=== PATIENT | female | born 1955 | race Caucasian/White ===

== ENCOUNTER 2017-11-02 12:31 | Inpatient (IN) | payer OTHER ==
--- NOTE | 2017-11-02 13:05 | ED ---
Psychiatric Complaint - HPI Summary HPI Summary: This patient is a 62 year old F presenting to [facility] with a chief complaint of SI. Pt states she is having a difficult time and wants to hurt herself, denies plan. Pt states she has been crying a lot recently and is afraid of everything. She recently had a medication change and doesnt believe it is working. PMHx of depression and anxiety. - History Of Current Complaint Chief Complaint: EDMentalHealth Time Seen by Provider: 11/02/17 12:55 Hx Obtained From: Patient Onset/Duration: Still Present Timing: Constant Severity Initially: Mild Severity Currently: Mild Character: Depressed Related History: Positive For: Prior Psychiatric Issues Has Suicidal: Reports: Thoughts. Denies: With A Plan Has Homicidal: Denies: Thoughts, With A Plan - Allergies/Home Medications Allergies/Adverse Reactions: Allergies Allergy/AdvReac Type Severity Reaction Status Date / Time citalopram [From Celexa] Allergy Unknown Verified 11/02/17 13:52 Reaction Details codeine Allergy Unknown Verified 11/02/17 13:52 Reaction Details lithium Allergy Unknown Verified 11/02/17 13:52 Reaction Details Sulfa (Sulfonamide Allergy Unknown Verified 11/02/17 13:52 Antibiotics) Reaction Details Home Medications: Home Medications ARIPiprazole TAB* [Abilify TAB*] 5 mg PO DAILY 11/02/17 [History Confirmed ] Albuterol HFA INHALER* [Ventolin HFA Inhaler*] 2 puff INH Q4H PRN 11/02/17 [ History Confirmed 11/02/17] Diclofenac Sodium EC TAB* [Voltaren EC TAB*] 50 mg PO TID PRN 11/02/17 [History Confirmed 11/02/17] Levothyroxine TAB* [Synthroid TAB*] 150 mcg PO DAILY 11/02/17 [History Confirmed 11/02/17] Metoprolol Succinate XL TAB* [Toprol XL TAB*] 50 mg PO BID 11/02/17 [History Confirmed 11/02/17] Potassium Chlor TAB* [Klor Con ER TAB*] 20 meq PO BID 11/02/17 [History Confirmed 11/02/17] Simvastatin (NF) [Zocor (NF)] 40 mg PO QPM 11/02/17 [History Confirmed 11/02/17] Venlafaxine EXT RELEASE CAP* [Effexor Xr CAP*] 150 mg PO DAILY 11/02/17 [ History Confirmed 11/02/17] buPROPion SR TAB* [Wellbutrin SR TAB*] 200 mg PO BID 11/02/17 [History Confirmed 11/02/17] clonazePAM TAB(*) [KlonoPIN TAB(*)] 1 mg PO BID PRN MDD 2 mg 11/02/17 [History Confirmed 11/02/17] PMH/Surg Hx/FS Hx/Imm Hx Endocrine/Hematology History: Denies: Hx Diabetes Cardiovascular History: Reports: Hx Hypercholesterolemia, Hx Hypertension Denies: Hx Cardiomegaly, Hx Hypotension Respiratory History: Reports: Hx Asthma Denies: Hx Chronic Bronchitis, Hx Chronic Obstructive Pulmonary Disease (COPD ), Hx Cystic Fibrosis GI History: Denies: Hx Gastrointestinal Bleed Neurological History: Denies: Hx Developmental Delay, Hx Headaches, Hx Migraine Psychiatric History: Reports: Hx Anxiety, Hx Depression Infectious Disease History: No Infectious Disease History: Denies: Traveled Outside the [place] in Last 30 Days - Social History Alcohol Use: Rare Substance Use Type: Reports: Marijuana Hx Tobacco Use: Yes Smoking Status (MU): Former Smoker Review of Systems Negative: Fever Positive: Other - SI All Other Systems Reviewed And Are Negative: Yes Physical Exam - Summary Physical Exam Summary: VITAL SIGNS: Reviewed. GENERAL: Patient is a well-developed and nourished female who is lying comfortable in the stretcher. Patient is not in any acute respiratory distress. HEAD AND FACE: No signs of trauma. No ecchymosis, hematomas or skull depressions. No sinus tenderness. EYES: PERRLA, EOMI x 2, No injected conjunctiva, no nystagmus. EARS: Hearing grossly intact. Ear canals and tympanic membranes are within normal limits. MOUTH: Oropharynx within normal limits. NECK: Supple, trachea is midline, no adenopathy, no JVD, no carotid bruit, no c- spine tenderness, neck with full ROM. CHEST: Symmetric, no tenderness at palpation LUNGS: Clear to auscultation bilaterally. No wheezing or crackles. CVS: Regular rate and rhythm, S1 and S2 present, no murmurs or gallops appreciated. ABDOMEN: Soft, non-tender. No signs of distention. No rebound no guarding, and no masses palpated. Bowel sounds are normal. EXTREMITIES: FROM in all major joints, no edema, no cyanosis or clubbing. NEURO: Alert and oriented x 3. No acute neurological deficits. Speech is normal and follows commands. SKIN: Dry and warm PSYCH: Depressed, quiet, and expressed SI. No homicidal thoughts or plan. No signs of psychosis or pressure speech. No tangential speech. Triage Information Reviewed: Yes Vital Signs On Initial Exam: Initial Vitals Temp Pulse Resp BP Pulse Ox 95.2 F 75 18 138/103 94 11/02/17 12:48 11/02/17 12:48 11/02/17 12:48 11/02/17 12:48 11/02/17 12:48 Vital Signs Reviewed: Yes Diagnostics - Vital Signs Vital Signs Temp Pulse Resp BP Pulse Ox 11/02/17 12:48 95.2 F 75 18 138/103 94 - Laboratory Result Diagrams: 11/02/17 13:39 11/02/17 13:39 Lab Statement: Any lab studies that have been ordered have been reviewed, and results considered in the medical decision making process. Course/Dx - Course Assessment/Plan: This patient is a 62 year old F presenting to [facility] with a chief complaint of SI. Pt states she is having a difficult time and wants to hurt herself, denies plan. Pt states she has been crying a lot recently and is afraid of everything. She recently had a medication change and doesnt believe it is working. PMHx of depression and anxiety. After a MHE by Dr. Schulz the patient was not deemed stable to be discharged home at this time. She will be admitted to the unit voluntarily, for unspecified depression. - Differential Dx/Clinical Impression Provider Diagnosis: Major depressive disorder, recurrent episode, unspecified Discharge - Sign-Out/Discharge Documenting (check all that apply): Patient Departure All imaging exams completed and their final reports reviewed: No Studies - Discharge Plan Condition: Stable Disposition: HOME - Billing Disposition and Condition Condition: STABLE Disposition: Home - Attestation Statements Document Initiated by Scribe: Yes Documenting Scribe: Jose Monge Provider For Whom Scribe is Documenting (Include Credential): Bethel Salvador MD Scribe Attestation: Jose Leon , scribed for Bethel Salvador MD on 11/03/17 at 2108. Scribe Documentation Reviewed: Yes Provider Attestation: The documentation as recorded by the Jose gresham accurately reflects the service I personally performed and the decisions made by me, Bethel Salvador MD
[2017-11-02 13:42] LABS: Urine Appearance Cloudy; Urine Blood Negative (Negative); Urine Color Yellow; Urine Ketones Negative (Negative); Urine Protein Negative (Negative); Urine Specific Gravity 1.009 (1.010-1.030); Urine Urobilinogen Negative (Negative)
[2017-11-02 13:50] LABS: ABS Basophils 0.1 10^3/ul (0-0.2); ABS Eosinophils 0.1 10^3/ul (0-0.6); ABS Lymphocytes 3.5 10^3/ul (1.0-4.8); ABS Monocytes 0.8 10^3/ul (0-0.8); ABS Neutrophils 6.8 10^3/ul (1.5-7.7); ABS Nucleated RBC 0 10^3/ul; Eosinophil % 1.1 % (0-6); Hematocrit 45 % (35-47); Hemoglobin 14.9 g/dl (12.0-16.0); Lymphocyte % 31.2 % (25-47); Mean Corpuscular HGB Conc 33 g/dl (31-36); Mean Corpuscular Hemoglobin 29 pg (27-31); Mean Corpuscular Volume 86 fL (80-97); Mean Platelet Volume 9.4 um3 (7.4-10.4); Nucleated Red Blood Cells % 0.1; Platelet Count 268 10^3/ul (150-450); Red Blood Count 5.18 10^6/ul (4.00-5.40); Red Cell Distribution Width 15 % (10.5-15); White Blood Count 11.4 10^3/ul (3.5-10.8)
[2017-11-02 15:05] LABS: EGFR Non-African American 81.8 (>60)
[2017-11-02] MEDS ORDERED: Acetaminophen TAB* 325 MG PO PRN (15:21)
[2017-11-02] MEDS ORDERED: Al Hydrox/Mg Hydrox/Simet LIQ* 30 ML UDC PO PRN (15:21)
[2017-11-02] MEDS ORDERED: Diclofenac Sodium EC TAB* 25 MG PO PRN (15:23)
[2017-11-02] MEDS ORDERED: Albuterol HFA INHALER* 8 gm MDI INH PRN (15:23)
[2017-11-02] MEDS ORDERED: hydrOXYzine HCL TAB* 25 MG PO ONE (16:13)
[2017-11-02] MEDS ORDERED: buPROPion SR TAB.SR* 100 MG PO SCH (21:00)
[2017-11-02] MEDS: Atorvastatin* 20 MG TAB PO SCH (21:53)
[2017-11-02] MEDS: Potassium Chlor TAB* 20 MEQ TAB.ER PO SCH (21:53)
[2017-11-02] MEDS: Metoprolol Succinate XL TAB* 50 MG PO SCH (21:53)
[2017-11-03] MEDS: Potassium Chlor TAB* 20 MEQ TAB.ER PO SCH ×2 (08:06→21:18)
[2017-11-03] MEDS: Levothyroxine TAB* 150 MCG TAB PO SCH (08:06)
[2017-11-03] MEDS: Venlafaxine EXT RELEASE CAP* 75 MG PO SCH (08:07)
[2017-11-03] MEDS: Metoprolol Succinate XL TAB* 50 MG PO SCH ×2 (08:08→21:17)
[2017-11-03] MEDS: clonazePAM TAB(*) 1 MG PO PRN ×2 (08:11→21:20)
[2017-11-03] MEDS ORDERED: BUPROPION 200 MG PO SCH (09:00)
[2017-11-03] MEDS ORDERED: ARIPiprazole TAB* 5 MG PO SCH (09:00)
[2017-11-03] MEDS: Atorvastatin* 20 MG TAB PO SCH (17:35)
[2017-11-03] MEDS ORDERED: Ondansetron ODT TAB* 4 MG ONE (18:00)
[2017-11-03] MEDS ORDERED: Ondansetron ODT TAB* 4 MG PO PRN ×2 (18:46→19:00)
[2017-11-03] MEDS ORDERED: Lurasidone(*) 20 MG TAB PO STA (19:50)
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
[2017-11-04] MEDS: Levothyroxine TAB* 150 MCG TAB PO SCH (06:45)
[2017-11-04] MEDS: Venlafaxine EXT RELEASE CAP* 75 MG PO SCH (08:27)
[2017-11-04] MEDS: Potassium Chlor TAB* 20 MEQ TAB.ER PO SCH ×2 (08:27→22:17)
[2017-11-04] MEDS: clonazePAM TAB(*) 1 MG PO PRN (08:27)
[2017-11-04] MEDS: Metoprolol Succinate XL TAB* 50 MG PO SCH ×2 (08:27→22:17)
[2017-11-04] MEDS: Atorvastatin* 20 MG TAB PO SCH (17:29)
[2017-11-05] MEDS: Levothyroxine TAB* 150 MCG TAB PO SCH (05:59)
[2017-11-05] MEDS: Potassium Chlor TAB* 20 MEQ TAB.ER PO SCH ×2 (09:04→21:58)
[2017-11-05] MEDS: Venlafaxine EXT RELEASE CAP* 75 MG PO SCH (09:04)
[2017-11-05] MEDS: Metoprolol Succinate XL TAB* 50 MG PO SCH ×2 (09:05→21:58)
[2017-11-05] MEDS: clonazePAM TAB(*) 1 MG PO PRN (13:21)
--- NOTE | 2017-11-05 16:30 | PN ---
Subjective - Subjective Date of Service: 11/05/17 Service Type: 40055 Hosp care 25 min moderate complexity Subjective: Atiya and I meet for the first time. She reports that when things are bad, as they were when she was admitted, she feels like crying, is depressed, and feels like she is sinking. She states she has been feeling like this for 9 years, which is when she got sick with a parathyroid tumor, which was removed (which has returned). At the same time as the tumor, she left her and traveled between her daughter and her sister. She periodically stays with her , but he is drinking too much for her to tolerate. Atiya reports that she is very honest with her therapist (Maureen Samaniego) and that she has been lonely and anxious and withdrawn since she was a child. Atiya had bariatric surgery a year ago June, then a left knee replacement and then a right knee replacement. She feels as though she meets obstacles around every corner. She has chronic thoughts of suicide. Objective - Appearance Appearance: Healthy Appearing, Obese Dysmorphic Features: No Hygiene: Normal Grooming: Well Kept - Behavior Psychomotor Activities: Normal Exhibits Abnormal Movement: No - Attitude and Relatedness Attitude and Relatedness: Well Related Eye Contact: Good - Speech Quality: Unpressured Latencies: Normal Quantity: Appropriate - Mood Patient's Decription of Mood: "Sad" - Affect Observed Affect: Tearful - Thought Process Patient's Thought Process: Coherent Thought Content: Yes Passive Wish, Yes Suicidal Planning, No Homicidal Ideation, No Paranoid Ideation - Sensorium Experiencing Hallucinations: No, Sensorium is Clear Type of Hallucinations: Visual: No, Auditory: No, Command: No - Level of Consciousness Level of Consciousness: Alert Orientation: Yes Intact, Yes Orientated to Time, Yes Orientated to Place, Yes Orientated to Person - Impulse Control Impulse Control: Tenuous - Insight and Judgement Insight and Judgement: Fair - Group Participation Particating in Group Activities: Yes - Medication Management Medication Management Adherence: Yes - Additional Observations Comments: Atiya is very adherent to medication regimen and wants to attend groups. She is working hard at that, although she is also tired and naps. She is having passive suicidal thoughts for the most part, but admits to a plan to overdose if things got much worse. Her affect is full and she is very pleasant and also is quite sad and lonely. Assessment - Assessment Merits Inpatient Hospitalization: For Immediate Safety Clinical Impression: Atiya is a 63-y.o. white woman who is still to her , although they have been estranged for 9 years. She left and has maintained a similar level of distress for these 9 years with passive suicidal thoughts that occasionally lead to an active plan to overdose. In this context, Atiya is a danger to herself. She has traits of major depressive disorder and generalized anxiety disorder. Plan - Plan Treatment Plan: Name: ATIYA CONTRERAS Birthdate: 1955 [id number] Continued Medication Management: Different Medication Medications: Current Medications Acetaminophen (Tylenol Tab*) 650 mg PO Q4H PRN PRN Reason: for pain; or Temp >101 F Al Hydrox/Mg Hydrox/Simethicone (Maalox Plus*) 30 ml PO Q4H PRN PRN Reason: INDIGESTION Albuterol (Ventolin Hfa Inhaler*) 2 puff INH Q4H PRN PRN Reason: SHORTNESS OF BREATH Aripiprazole (Abilify Tab*) 5 mg PO DAILY [facility] Atorvastatin Calcium (Lipitor*) 20 mg PO QPM [facility] Last Admin: 11/04/17 17:29 Dose: 20 mg Clonazepam (Klonopin Tab(*)) 1 mg PO BID PRN PRN Reason: ANXIETY Last Admin: 11/05/17 13:21 Dose: 1 mg Diclofenac Sodium (Voltaren Ec Tab*) 50 mg PO TID PRN PRN Reason: PAIN Last Admin: 11/05/17 13:20 Dose: 50 mg Levothyroxine Sodium (Synthroid Tab*) 150 mcg PO DAILY@0600 [facility] Last Admin: 11/05/17 05:59 Dose: 150 mcg Metoprolol Succinate (Toprol Xl Tab*) 50 mg PO BID [facility] Last Admin: 11/05/17 09:05 Dose: 50 mg Ondansetron HCl (Zofran Odt Tab*) 4 mg PO Q6H PRN PRN Reason: NAUSEA Last Admin: 11/04/17 17:49 Dose: 4 mg Potassium Chloride (Klor Con Er Tab*) 20 meq PO BID [facility] Last Admin: 11/05/17 09:04 Dose: 20 meq Venlafaxine HCl (Effexor Xr Cap*) 225 mg PO DAILY [facility] - Discharge Plan Discharge Plan: Outpatient Follow Up Additional Comments: Atiya will go back to some of her original medications, which were helpful, although not fully covering her symptoms. She will continue with groups and collateral will be gathered from her daughter and sister, if possible. Further, attempts will be made to find all the services she is working with to provide her more support in the community.
[2017-11-05] MEDS: Atorvastatin* 20 MG TAB PO SCH (19:05)
[2017-11-06] MEDS: Levothyroxine TAB* 150 MCG TAB PO SCH (06:05)
[2017-11-06] MEDS: Venlafaxine EXT RELEASE CAP* 75 MG PO SCH (09:19)
[2017-11-06] MEDS: ARIPiprazole TAB* 5 MG PO SCH (09:19)
[2017-11-06] MEDS: Potassium Chlor TAB* 20 MEQ TAB.ER PO SCH ×2 (09:19→21:21)
[2017-11-06] MEDS: Metoprolol Succinate XL TAB* 50 MG PO SCH ×2 (09:20→21:21)
[2017-11-06] MEDS: clonazePAM TAB(*) 1 MG PO PRN (10:16)
--- NOTE | 2017-11-06 15:21 | PN ---
Subjective - Subjective Date of Service: 11/06/17 Service Type: 79324 Hosp care 25 min moderate complexity Subjective: Atiya feels much better today. She says she is learning things here that she hasn't learned in any of the other places she has visited. She's repeating that since a little girl she's felt less-than and anxious and that she realizes now that she needs to care for herself in this context and learn to be proactive and face her fears with bravery. Atiya says she's up to the challenge. Objective - Appearance Appearance: Obese Dysmorphic Features: No Hygiene: Normal Grooming: Fairly Well Kept - Behavior Psychomotor Activities: Normal Exhibits Abnormal Movement: No - Attitude and Relatedness Attitude and Relatedness: Needy Eye Contact: Good - Speech Quality: Unpressured Latencies: Normal Quantity: Appropriate - Mood Patient's Decription of Mood: "Good" - Affect Observed Affect: Good Affect Consistent with: Euthymia - Thought Process Patient's Thought Process: Coherent, Goal Directed Thought Content: No Passive Wish, No Suicidal Planning, No Homicidal Ideation, No Paranoid Ideation - Sensorium Experiencing Hallucinations: No, Sensorium is Clear Type of Hallucinations: Visual: No, Auditory: No, Command: No - Level of Consciousness Level of Consciousness: Alert Orientation: Yes Intact, Yes Orientated to Time, Yes Orientated to Place, Yes Orientated to Person - Impulse Control Impulse Control: Intact - Insight and Judgement Insight and Judgement: Good - Group Participation Particating in Group Activities: Yes - Medication Management Medication Management Adherence: Yes - Additional Observations Comments: Atiya is very adherent to medication regimen and wants to attend groups. She is working hard at that and states she is getting a lot out of them. Her affect is full and she is very pleasant. She admits she will struggle with sadness and loneliness when she goes home. Assessment - Assessment Merits Inpatient Hospitalization: For Immediate Safety, For Discharge Planning Inpatient DSM-V Dx: F33.1 Clinical Impression: Atiya is a 63-y.o. white woman who is still to her , although they have been estranged for 9 years. She left and has maintained a similar level of distress for these 9 years with passive suicidal thoughts that occasionally lead to an active plan to overdose. She has traits of major depressive disorder and generalized anxiety disorder. Plan - Plan Treatment Plan: Name: ATIYA CONTRERAS Birthdate: 1955 [id number] Continued Medication Management: Different Medication Medications: Current Medications Acetaminophen (Tylenol Tab*) 650 mg PO Q4H PRN PRN Reason: for pain; or Temp >101 F Al Hydrox/Mg Hydrox/Simethicone (Maalox Plus*) 30 ml PO Q4H PRN PRN Reason: INDIGESTION Albuterol (Ventolin Hfa Inhaler*) 2 puff INH Q4H PRN PRN Reason: SHORTNESS OF BREATH Aripiprazole (Abilify Tab*) 5 mg PO DAILY [facility] Last Admin: 11/06/17 09:19 Dose: 5 mg Atorvastatin Calcium (Lipitor*) 20 mg PO QPM [facility] Last Admin: 11/05/17 19:05 Dose: 20 mg Clonazepam (Klonopin Tab(*)) 1 mg PO BID PRN PRN Reason: ANXIETY Last Admin: 11/06/17 10:16 Dose: 1 mg Diclofenac Sodium (Voltaren Ec Tab*) 50 mg PO TID PRN PRN Reason: PAIN Last Admin: 11/05/17 13:20 Dose: 50 mg Levothyroxine Sodium (Synthroid Tab*) 150 mcg PO DAILY@0600 [facility] Last Admin: 11/06/17 06:05 Dose: 150 mcg Metoprolol Succinate (Toprol Xl Tab*) 50 mg PO BID [facility] Last Admin: 11/06/17 09:20 Dose: 50 mg Ondansetron HCl (Zofran Odt Tab*) 4 mg PO Q6H PRN PRN Reason: NAUSEA Last Admin: 11/04/17 17:49 Dose: 4 mg Potassium Chloride (Klor Con Er Tab*) 20 meq PO BID [facility] Last Admin: 11/06/17 09:19 Dose: 20 meq Venlafaxine HCl (Effexor Xr Cap*) 225 mg PO DAILY [facility] Last Admin: 11/06/17 09:19 Dose: 225 mg - Discharge Plan Discharge Plan: Outpatient Follow Up Additional Comments: Atiya will go back to some of her original medications, which were helpful, although not fully covering her symptoms. She will continue with groups and collateral will be gathered from her daughter and sister, if possible. Further, attempts will be made to find all the services she is working with to provide her more support in the community. She is agreeable to this plan and is delighted to go home.
[2017-11-06] MEDS: Atorvastatin* 20 MG TAB PO SCH (18:03)
[2017-11-07] MEDS: clonazePAM TAB(*) 1 MG PO PRN ×2 (00:49→09:22)
[2017-11-07] MEDS: Levothyroxine TAB* 150 MCG TAB PO SCH (06:27)
[2017-11-07 08:33] VITALS: BP 146/102
[2017-11-07] MEDS: Potassium Chlor TAB* 20 MEQ TAB.ER PO SCH (08:51)
[2017-11-07] MEDS: Venlafaxine EXT RELEASE CAP* 75 MG PO SCH (08:51)
[2017-11-07] MEDS: ARIPiprazole TAB* 5 MG PO SCH (08:52)
[2017-11-07] MEDS: Metoprolol Succinate XL TAB* 50 MG PO SCH (08:53)
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
== END 2017-11-07 13:20 | disposition home or self-care (01) | DRG 751 ==
LOC: ED 12:31 → BSU 17:55
PROVIDERS: ADMIT Psychiatry & Neurology Psychiatry; ATTEND Psychiatry & Neurology Psychiatry
DX: F33.2 Major depressive disorder, recurrent severe without psychotic features (principal); R45.851 Suicidal ideations; E78.00 Pure hypercholesterolemia, unspecified; I10 Essential (primary) hypertension; J45.909 Unspecified asthma, uncomplicated; F32.9 Major depressive disorder, single episode, unspecified; E03.9 Hypothyroidism, unspecified; E21.5 Disorder of parathyroid gland, unspecified; Z96.653 Presence of artificial knee joint, bilateral; F41.1 Generalized anxiety disorder; E66.9 Obesity, unspecified; Z68.25 Body mass index [BMI] 25.0-25.9, adult; Z87.891 Personal history of nicotine dependence; Z81.8 Family history of other mental and behavioral disorders; Z88.5 Allergy status to narcotic agent; Z88.2 Allergy status to sulfonamides; Z88.8 Allergy status to other drugs, medicaments and biological substances; Z98.84 Bariatric surgery status
CPT/HCPCS: 36415; 80053; 80061; 80307; 80320; 80329; 81003; 83036; 83721; 84443; 85025; 90686; 99222; 99232; 99238; 99285; A9270-GY; G0480